=== PATIENT | male | born 1995 | race Two or more races ===

== ENCOUNTER 2019-02-27 17:31 | Emergency (ER) | payer MEDICAID ==
[~2019-02-27] VITALS: Ht 180.3 cm; Wt 77.1 kg
[2019-02-27 19:18] LABS: Basophils # (auto) 0 uL; Eosinophils # (auto) 0 uL; Lymphocytes # (auto) 1.9 uL; Monocytes # (auto) 0.9 uL; Neutrophils # (auto) 6.6 uL; Nucleated Red Blood Cells % 0.1 %; White Blood Cell 9.5 10^3/uL (4.4-10.8)
[2019-02-27 19:20] LABS: Alanine Aminotransferase 65 U/L (16-61); Albumin 3.9 g/dL (3.4-5.0); Anion Gap 7 (5-15); Blood Alcohol < 3.0 mg/dL (0-5); Blood Urea Nitrogen 9 mg/dL (7-18); Calcium 8.9 mg/dL (8.5-10.1); Carbon Dioxide 27 mmol/L (21-32); Chloride 104 mmol/L (98-107); Glucose 86 mg/dL (74-106); Potassium 3.7 mmol/L (3.5-5.1); Sodium 138 mmol/L (136-145)
[2019-02-27 19:22] LABS: Basophils % (auto) 0.3 % (0.0-2.0); Eosinophils % (auto) 0.2 % (0.0-7.0); Hematocrit 45.2 % (41.0-53.0); Lymphocytes % (auto) 20.1 % (10.0-50.0); Mean Corpuscular Hemoglobin 26.4 pg (28.0-32.0); Mean Corpuscular Hgb Conc. 33.2 g/dL (32.0-36.0); Mean Corpuscular Volume 79.4 fL (80.0-100.0); Monocytes % (auto) 9.9 % (0.0-12.0); Neutrophils % (auto) 69.5 % (37.0-80.0); Platelet Count (auto) 304 10^3/uL (140-450); Red Blood Cells 5.69 10^6/uL (4.5-5.90); Red Cell Distribution Width 13.9 % (11.8-14.3)
[2019-02-27 19:23] LABS: Alkaline Phosphatase 76 U/L (45-117); Aspartate Aminotransferase 30 U/L (15-37); BUN/Creatinine Ratio 9.5; Bilirubin, Total 0.5 mg/dL (0.2-1.0); GFR African American 124 mL/min; GFR Non-African American 103 mL/min; Total Protein 8.4 g/dL (6.4-8.2)
[2019-02-27 19:27] LABS: Salicylate < 1.7 mg/dL (2.8-20.0)
[2019-02-27 19:28] LABS: Acetaminophen < 2.0 ug/mL (10-30)
[2019-02-27 22:50] LABS: Alcohol, Urine < 3.0 mg/dL (0-5); Amphetamine Screen, Urine NEGATIVE (NEGATIVE); Benzodiazephine Screen, Urine NEGATIVE (NEGATIVE); Cannabinoid Screen, Urine NEGATIVE (NEGATIVE); Cocaine Screen, Urine NEGATIVE (NEGATIVE); Opiate Scree,Urine NEGATIVE (NEGATIVE); Phencyclidine Screen, Urine NEGATIVE (NEGATIVE)
[2019-02-27 22:52] LABS: Barbiturate Scree,Urine NEGATIVE (NEGATIVE)
[2019-02-27 23:11] LABS: Urine Bacteria NONE SEEN /hpf (None Seen); Urine Blood TRACE /uL (Negative); Urine Mucus FEW (None Seen); Urine WBC 5 /hpf (0 - 3)
[2019-02-27] MEDS ORDERED: OLAN10TA29 PO (23:24)
[2019-02-27] MEDS ORDERED: DIVA500T53 PO (23:26)
[2019-02-28] MEDS ORDERED: LORazepam 0.5 MG TAB ONE (01:09)
[2019-02-28] MEDS ORDERED: LORazepam 0.5 MG TAB PO ONE (01:15)
[2019-02-28 04:50] VITALS: BP 139/106
== END 2019-02-28 04:56 | disposition home or self-care (01) ==
LOC: EDBD 17:31 → ER 17:36
DX: F20.9 Schizophrenia, unspecified (principal); F31.9 Bipolar disorder, unspecified; F41.9 Anxiety disorder, unspecified
CPT/HCPCS: 36415; 80053; 80307; 80320; 80329; 81001; 85025; 94761